=== PATIENT | female | born 1950 | race Two or more races ===

== ENCOUNTER 2018-09-10 11:10 | Inpatient (IN) | payer BC ==
[~2018-09-10] VITALS: Ht 160 cm; Wt 57.2 kg
[2018-09-10 11:40] LABS: BASOPHILS # (AUTO) 0.1 /CMM (0.0-0.2); BASOPHILS % (AUTO) 0.7 % (0.0-2.0); EOSINOPHILS % (AUTO) 0.3 % (0.0-6.0); HEMATOCRIT 41 % (33-45); LYMPHOCYTES # (AUTO) 0.7 /CMM (0.8-4.8); LYMPHOCYTES % (AUTO) 8.3 % (20.0-44.0); MEAN CORPUSCULAR HGB CONC 34 g/dl (31.0-36.0); MEAN CORPUSCULAR VOLUME 92 fL (82-100); MONOCYTES # (AUTO) 0.4 /CMM (0.1-1.30); NEUTROPHILS # (AUTO) 7.4 /CMM (1.8-8.9); NEUTROPHILS % (AUTO) 85.7 % (43.0-81.0); PLATELET COUNT (AUTO) 294 /CMM (150-450); RED BLOOD CELL COUNT(AUTO) 4.44 MIL/uL (4.0-5.2); WHITE BLOOD COUNT (AUTO) 8.6 K/uL (4.3-11.0)
[2018-09-10 11:52] LABS: CARBON DIOXIDE 28 mmol/L (21-32); CHLORIDE 104 mmol/L (98-107); CREATININE 0.7 mg/dL (0.6-1.3); GLUCOSE 115 mg/dL (74-106); POTASSIUM 3.6 mmol/L (3.5-5.1); SODIUM SERUM 140 mmol/L (136-145); UREA NITROGEN, BLOOD 23 mg/dL (7-18)
[2018-09-10 11:58] LABS: ALANINE AMINOTRANSFERASE 27 U/L (12-78); ALBUMIN 3.9 g/dL (3.4-5.0); ALKALINE PHOSPHATASE 84 U/L (46-116); ASPARTATE AMINOTRANSFERASE 19 U/L (15-37); BILIRUBIN,DIRECT 0.1 mg/dL (0.0-0.2); BILIRUBIN,TOTAL 0.3 mg/dL (0.2-1.0); TOTAL PROTEIN, SERUM 7.3 g/dL (6.4-8.2)
[2018-09-10] MEDS ORDERED: IOHEXOL-350 100 ML VIAL IV ONE (12:52)
[2018-09-10] MEDS ORDERED: IV NS 0.9% 250 ML IV ONE (12:52)
[2018-09-10] MEDS ORDERED: CT SWABBABLE VALVE TRANS SET 1 EA INFUS.SET MC ONE (12:52)
--- NOTE | 2018-09-10 13:58 | NUR ---
PT BIBS C/O DIZZYNESS. - SOB,-LOC, - PAIN, -N/V.-H/A, PT STATES SHE HAD A VIGUROUS WORKOUT PRIOR BUT NOTHING UNUSUAL, PT URINTED FREQUENTLY BEFORE COMING IN
[2018-09-10] MEDS ORDERED: ASPIRIN 81 MG TAB.CHEW PO ONE (15:00)
[2018-09-10] MEDS ORDERED: ASPIRIN 81 MG TAB.CHEW ONE (15:08)
--- NOTE | 2018-09-10 15:18 | NUR ---
CALLED FOR BED
--- NOTE | 2018-09-10 16:54 | NUR ---
PT BEING TRANSPORTED TO TELE ROOM 304, HAND OFF GIVEN TO KAT BABB TE, PT STABLE COMFORTABLE,
--- NOTE | 2018-09-10 17:00 | NUR ---
DISPLAYER MERCHANDISE NOTE PT WAS BROUGHT TO THE FLOOR VIA JANUARY, A/O X4, BREATHING EVEN AND UNLABORED ON RA, NO PAIN OR DISTRESS, AMBULATORY, NOTED TO HAVE A WOUND ON HER LEFT LOWER LEG, SON PRESENT AT BEDSIDE, SAFETY PRECAUTIONS IN PLACE, CALL LIGHT WITHIN REACH, WILL MONITOR ACCORDINGLY
[2018-09-10] MEDS ORDERED: BLOOD SUGAR DIAGNOSTIC 1 EACH STRIP IN SCH (17:30)
[2018-09-10] MEDS ORDERED: ACETAMINOPHEN 325 MG TABLET PO PRN (17:30)
[2018-09-10] MEDS ORDERED: MAG HYDROX/AL HYDROX/SIMETH 30 ML UDC PO PRN (17:30)
[2018-09-10] MEDS ORDERED: INSULIN REGULAR, HUMAN 100 UNIT/ML 3 ML VIAL SQ PRN (18:00)
[2018-09-10] MEDS ORDERED: DEXTROSE 50%-WATER 50 ML DISP.SYRIN IV PRN (18:00)
[2018-09-10 18:15] VITALS: BP 113/54
[2018-09-10] MEDS: BLOOD SUGAR DIAGNOSTIC 1 EACH STRIP IN SCH (18:19)
--- NOTE | 2018-09-10 18:53 | NUR ---
RN CLOSING NOTE PT RESTING IN AT LOWEST AND LOCKED POSITION WITH SIDE RAILS UP X2, BREATHING EVEN AND UNLABORED ON RA, NO CURRENT COMPLAINTS OR DISTRESS, IV IS PATENT AND INTACT, NOTED TO HAVE LEFT LEG ABRASION, SAFETY PRECAUTIONS IN PLACE, CALL LIGHT WITHIN REACH, WILL ENDORSE TO PHOTO PRINT SPECIALIST RN FOR TE.
[2018-09-10 19:54] VITALS: BP 108/56
--- NOTE | 2018-09-10 20:00 | NUR ---
PREPARER NOTES RECEIVED PATIENT AWAKE IN BED AND WATCHING TV WITH NO DISTRESS NOTED. CALL LIGHT WITHIN REACH. NO C/O PAIN OR DISCOMFORT. NO C/O DIZZINESS, MEDINA, BLURRY VISION, OR CHEST PAIN. VITALS WNL. ENCOURAGED USE OF CALL LIGHT FOR ASSISTANCE AND VERBALIZED GOOD UNDERSTANDING. PERIPHERAL LINE INTACT AND PATENT. BED IN LOW LOCK SETTING. ALL BELONGINGS KEPT NEAR BEDSIDE. WILL CONTINUE TO MONITOR.
[2018-09-10] MEDS: SIMVASTATIN 10 MG TABLET PO SCH (21:18)
[2018-09-10] MEDS: ENOXAPARIN SODIUM 40 MG/0.4 ML DISP.SYRIN SQ SCH (21:19)
[2018-09-10 23:00] VITALS: BP 109/56
[2018-09-11] MEDS: BLOOD SUGAR DIAGNOSTIC 1 EACH STRIP IN SCH ×5 (00:16→23:32)
[2018-09-11 06:26] LABS: BASOPHILS # (AUTO) 0.1 /CMM (0.0-0.2); BASOPHILS % (AUTO) 1.1 % (0.0-2.0); EOSINOPHILS % (AUTO) 3.4 % (0.0-6.0); HEMATOCRIT 40 % (33-45); HEMOGLOBIN 13.3 g/dL (11.5-14.8); LYMPHOCYTES # (AUTO) 2.2 /CMM (0.8-4.8); MEAN CORPUSCULAR HGB CONC 34 g/dl (31.0-36.0); MEAN CORPUSCULAR VOLUME 92 fL (82-100); MONOCYTES # (AUTO) 0.5 /CMM (0.1-1.30); NEUTROPHILS # (AUTO) 2.8 /CMM (1.8-8.9); NEUTROPHILS % (AUTO) 48.5 % (43.0-81.0); PLATELET COUNT (AUTO) 276 /CMM (150-450); RED BLOOD CELL COUNT(AUTO) 4.33 MIL/uL (4.0-5.2); WHITE BLOOD COUNT (AUTO) 5.7 K/uL (4.3-11.0)
--- NOTE | 2018-09-11 06:35 | NUR ---
COCKTAIL LOUNGE MANAGER NOTES PATIENT AWAKE IN BED WITH NO DISTRESS NOTED. CALL LIGHT WITHIN REACH. ALL DUE MEDS GIVEN ORDERED WITH NO ASE NOTED. NO C/O PAIN OR DISCOMFORT. NEURO AND STROKE ASSESSMENTS RENDERED ORDERED. PATIENT IN STABLE CONDITION. PERIPHERAL LINE INTACT AND PATENT. BED IN LOW LOCK SETTING. WILL ENDORSE TO ONCOMING SHIFT.
[2018-09-11 06:48] LABS: CALCIUM, SERUM 8.5 mg/dL (8.5-10.1); CREATININE 0.8 mg/dL (0.6-1.3); MAGNESIUM 2.2 mg/dL (1.8-2.4); PHOSPHORUS 3.7 mg/dL (2.5-4.9); POTASSIUM 3.6 mmol/L (3.5-5.1)
[2018-09-11 06:58] LABS: THYROID STIMULATING HORMONE 3.633 uIU/mL (0.358-3.74)
--- NOTE | 2018-09-11 07:47 | NUR ---
MS RN OPENING NOTES RECEIVED PATIENT IN STABLE CONDITION. IN NO APPARENT DISTRESS. BEDSIDE RAILS ARE UPX2. BED IS LOCKED AND LOWERED. CALL LIGHT IS WITHIN REACH. IV LINE IS INTACT AND PATENT. WILL CONTINUE TO MONITOR.
[2018-09-11 08:00] VITALS: BP 107/57
[2018-09-11] MEDS: PANTOPRAZOLE 40 MG TABLET.DR PO SCH (08:32)
[2018-09-11] MEDS: DOCUSATE SODIUM 100 MG CAPSULE PO SCH (08:32)
[2018-09-11] MEDS: ASPIRIN EC 325 MG TABLET.DR PO SCH (08:33)
[2018-09-11] MEDS ORDERED: ALEN70TA3 PO (09:24)
[2018-09-11] MEDS ORDERED: IV NS 0.9% 500 ML BAG IV ONE (10:30)
[2018-09-11 15:06] LABS: APPEARANCE,URINE SL CLOUDY (CLEAR); BILIRUBIN,URINE NEGATIVE (NEGATIVE); BLOOD, URINE 1+ Ery/uL (NEGATIVE); COLOR,URINE YELLOW (YELLOW); KETONES,URINE NEGATIVE (NEGATIVE); LEUKOCYTE ESTERASE ,URINE NEGATIVE (NEGATIVE); NITRITE, URINE NEGATIVE (NEGATIVE); PH,URINE 6.5 (5.0-8.0); PROTEIN,URINE NEGATIVE (NEGATIVE); UGLUCOSE NEGATIVE (NEGATIVE); UROBILINOGEN,URINE 0.2 EU/dL (0.2)
[2018-09-11 15:36] LABS: BACTERIA,URINE None seen /HPF (None Seen); SQUAMOUS EPITHELIAL CELL,UR Few /HPF (None Seen); WBC,URINE 0-2 /HPF (0-3)
[2018-09-11 16:00] VITALS: BP 102/59
[2018-09-11 16:15] VITALS: BP_SYST 104; BP_SYST 120; BP_DIAS 59; BP_DIAS 62; BP_DIAS 66
--- NOTE | 2018-09-11 18:13 | NUR ---
MS RN CLOSING NOTES PATIENT IS IN STABLE CONDITION. IN NO APPARENT DISTRESS. BEDSIDE RAILS ARE UPX2. BED IS LOCKED AND LOWERED. CALL LIGHT IS WITHIN REACH. IV LINE IS INTACT AND PATENT.ALL NEEDS WERE MET. WILL ENDORSE CARE TO CLIPPER AUTOMATIC NURSE FOR TE.
--- NOTE | 2018-09-11 19:30 | NUR ---
RN NOTES RECEIVED PT. WAKE ON BED, A/OX4, AMBULATORY, DENIES PAIN, NO SOB, CALL LIGHT WITHIN REACH, [id number], CONTINUE TO MONITOR
[2018-09-11 20:00] VITALS: BP 109/75
[2018-09-11] MEDS: SIMVASTATIN 10 MG TABLET PO SCH (21:11)
[2018-09-11] MEDS: ENOXAPARIN SODIUM 40 MG/0.4 ML DISP.SYRIN SQ SCH (21:12)
[2018-09-12] MEDS: BLOOD SUGAR DIAGNOSTIC 1 EACH STRIP IN SCH ×2 (05:50→12:39)
--- NOTE | 2018-09-12 06:19 | NUR ---
RN NOTES AWAKE, DENIES PAIN, NO SOB, MORNING CARE RENDERED, DENIES DIZZINESS, CALL LIGHT WITHIN REACH, [id number], PT. NEEDS ATTENDED
[2018-09-12 06:25] LABS: BASOPHILS # (AUTO) 0.1 /CMM (0.0-0.2); BASOPHILS % (AUTO) 1.2 % (0.0-2.0); EOSINOPHILS % (AUTO) 4.3 % (0.0-6.0); HEMATOCRIT 37 % (33-45); HEMOGLOBIN 12.6 g/dL (11.5-14.8); LYMPHOCYTES # (AUTO) 1.9 /CMM (0.8-4.8); LYMPHOCYTES % (AUTO) 39.1 % (20.0-44.0); MEAN CORPUSCULAR HGB CONC 34 g/dl (31.0-36.0); MEAN CORPUSCULAR VOLUME 92 fL (82-100); MONOCYTES # (AUTO) 0.4 /CMM (0.1-1.30); MONOCYTES % (AUTO) 8.2 % (2.0-12.0); NEUTROPHILS # (AUTO) 2.3 /CMM (1.8-8.9); NEUTROPHILS % (AUTO) 47.2 % (43.0-81.0); PLATELET COUNT (AUTO) 262 /CMM (150-450); RED BLOOD CELL COUNT(AUTO) 4.08 MIL/uL (4.0-5.2); WHITE BLOOD COUNT (AUTO) 4.8 K/uL (4.3-11.0)
[2018-09-12 06:36] LABS: MAGNESIUM 2.1 mg/dL (1.8-2.4); PHOSPHORUS 3.9 mg/dL (2.5-4.9)
--- NOTE | 2018-09-12 07:05 | NUR ---
MS RN NOTES PATIENT IN BED ALERT ORIENTED X 3. NO ACUTE DISTRESS NOTED. BREATHING UNLABORED. NO ACUTE DISTRESS NOTED. BREATHING UNLABORED. IV ACCESS PATENT AND INTACT, NO REDNESS OR SWELLING NOTED. CALL LIGHT WITHIN REACH. SAFETY MEASURES IN PLACE. WILL CONTINUE TO MONITOR ACCORDINGLY.
[2018-09-12] MEDS: PANTOPRAZOLE 40 MG TABLET.DR PO SCH (08:29)
[2018-09-12] MEDS: ASPIRIN EC 325 MG TABLET.DR PO SCH (08:30)
[2018-09-12] MEDS: DOCUSATE SODIUM 100 MG CAPSULE PO SCH (08:30)
[2018-09-12 08:45] VITALS: BP 92/47
[2018-09-12] MEDS ORDERED: SIMV10TA6 PO (09:56)
[2018-09-12] MEDS ORDERED: ASPI-1169 PO (09:56)
--- NOTE | 2018-09-12 13:00 | NUR ---
Social service consult requested by HO Qureshi for possible CVA. Pt. is a 68 year old female who presented to the emergency department with complaints of dizziness and bilateral lower extremity weakness which began after a medium effort workout. 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 An ultrasound was performed of bilateral carotids which revealed no significant stenosis or occlusion. Pt. is alert and oriented x 4. Pt. lives alone and her son Kurt Treviño is her emergency contact . Pt. is independent with her ADL's and has no DME's at home. Pt. would like to go back home upon discharge. Pt. states her son or brother will pick her up at time of discharge. Pt. was evaluated by PT/OT and speech therapist. Pt. does not have an Advance Directive at this time.
--- NOTE | 2018-09-12 15:50 | NUR ---
MS SUPPLY TECH NOTES PATIENT DISCHARGE HOME WITH SON WITH STABLE VITAL SIGNS. NO ACUTE DISTRESS NOTED. BREATHING UNLABORED. ALERT ORIENTED X 3. DENIED ANY PAIN. DISCHARGE INSTRUCTIONS GIVEN TO THE PATIENT INCLUDING FOLLOW UP WITH PRIMARY DOCTOR AND DR CHURCH AND NEW PRESCRIPTION , VERBALIZED UNDERSTANDING. ALL BELONGINGS ACCOUNTED FOR. IV ACCESS REMOVED, NO BLEDDING, NO REDNESS, NO SWELLING NOTED. WHEELED TO THE [facility], ASSISTED TO A PRIVATE CAR IN STABLE CONDITION.
== END 2018-09-12 16:15 | disposition home or self-care (01) | DRG 69 ==
LOC: ER 11:13 → UNDOADMIN 14:58 → TELE 14:58 → MED 09-11 11:04
PROVIDERS: ADMIT Registered Nurse; ATTEND Registered Nurse
DX: G45.9 Transient cerebral ischemic attack, unspecified (principal); R42 Dizziness and giddiness; R73.9 Hyperglycemia, unspecified; R53.1 Weakness; R93.1 Abnormal findings on diagnostic imaging of heart and coronary circulation; I72.0 Aneurysm of carotid artery
CPT/HCPCS: 36415; 70496-TC; 70498-TC; 80048-TC; 80061-TC; 80076-TC; 81000-TC; 82962-TC; 83735-TC; 84100-TC; 84443-TC; 84484-TC; 85025-TC; 85730-TC; 87081-TC; 92611-TC; 93307-TC; 93880-TC; G0378; J1650; J1815; J7040; J7050; Q9967